=== PATIENT | female | born 1990 | race Caucasian/White ===

== ENCOUNTER 2018-12-25 18:14 | Emergency (ER) | payer BC ==
[2018-12-25 20:34] LABS: URINE BLOOD (Dip) POC Trace-lysed (NEGATIVE); URINE GLUCOSE (Dip) POC Negative (NEGATIVE); URINE KETONES (Dip) POC Negative (NEGATIVE); URINE LEUKOCYTE EST (Dip) POC Negative (NEGATIVE); URINE NITRITE (Dip) POC Negative (NEGATIVE); URINE TOTAL PROTEIN POC Negative (NEGATIVE)
== END 2018-12-25 21:15 | disposition home or self-care (01) ==
LOC: FTE 18:14
DX: M54.5 Low back pain (principal)
CPT/HCPCS: 81003; 99282